=== PATIENT | male | born 1945 | race Caucasian/White ===

== ENCOUNTER 2021-09-18 12:20 | Inpatient (IN) | payer MEDICAID, SELFPAY ==
[~2021-09-18] VITALS: Ht 165.1 cm; Wt 72.1 kg
[2021-09-18 12:47] VITALS: BP 135/59
[2021-09-18 15:39] LABS: BASOPHILS % (AUTO) 0.1 % (0.0-2.0); HEMATOCRIT 22.6 % (36-52); LYMPHOCYTES # (AUTO) 0.3 K/uL (2.0-11.5); LYMPHOCYTES % (AUTO) 3.5 % (20.5-51.1); MEAN CORPUSCULAR HEMOGLOBIN 20 pg (27-31); MEAN CORPUSCULAR HGB CONC 30 g/dL (33-37); MEAN CORPUSCULAR VOLUME 67.2 fL (80-94); MONOCYTES # (AUTO) 0.4 K/uL (0.8-1.0); MONOCYTES % (AUTO) 5.1 % (1.7-9.3); NEUTROPHILS # (AUTO) 7.6 K/uL (1.8-7.7); NEUTROPHILS % (AUTO) 91.3 % (42.2-75.2); PLATELET COUNT (AUTO) 66 K/uL (140-450); RED BLOOD CELL COUNT(AUTO) 3.36 MIL/uL (4.20-6.10); RED CELL DISTRIBUTION WIDTH 20.5 % (11.6-13.7); WHITE BLOOD COUNT (AUTO) 8.4 K/uL (4.8-10.8)
[2021-09-18 15:49] LABS: HEMOGLOBIN 6.8 g/dL (12.0-18.0)
[2021-09-18 15:53] LABS: ANION GAP 7.2 (8-16); CARBON DIOXIDE 29.9 mmol/L (21-32); CHLORIDE 110 mmol/L (98-107); GLUCOSE 83 mg/dL (74-106); POTASSIUM 4.1 mmol/L (3.5-5.1); SODIUM SERUM 143 mmol/L (136-145); UREA NITROGEN, BLOOD 28 mg/dL (7-18)
--- NOTE | 2021-09-18 16:10 | NUR ---
PT TAKEN TO BED 03 VIA W/C.
[2021-09-18] MEDS ORDERED: ACETAMINOPHEN 325 MG TAB PO PRN (17:30)
[2021-09-18] MEDS ORDERED: ONDANSETRON 4 MG/2 ML VIAL IM/IVP PRN (17:30)
[2021-09-18] MEDS ORDERED: DOCUSATE SODIUM 100 MG GELCAP PO PRN (17:30)
[2021-09-18] MEDS ORDERED: ZOLPIDEM 5 MG TAB PO PRN (17:30)
[2021-09-18] MEDS ORDERED: HYDROcodone/APAP 7.5/325 MG 1 TAB PO PRN (17:30)
[2021-09-18] MEDS ORDERED: POTASSIUM CHLORIDE 10 MEQ TABER PO PRN (17:30)
[2021-09-18] MEDS ORDERED: guaiFENesin DM 200/20 MG-10 ML 10 ML UDC PO PRN (17:30)
--- NOTE | 2021-09-18 19:00 | NUR ---
unable to establish iv access at this time
--- NOTE | 2021-09-18 19:15 | NUR ---
75 y/o male biba for general weakness that started earlier this morning, pt states [facility], urgent care notified pt needed further care for generalized body pain and weakness. denies n/v/d. skin is pale/cool/dry; ambulates with walker, unable to ambulate at this time due to weakness; hr even and regular; patient states pain of 7/10 at this time; vss; patient positioned for comfort; hob elevated; bedrails x2; bed down. ermd made aware of pt status. pmh: chronic back pain med: methadone nka
--- NOTE | 2021-09-18 19:18 | NUR ---
pt swabbed for novel and philomena at this time
--- NOTE | 2021-09-18 19:20 | NUR ---
REPORT RECIEVED FROM MONO ANTOINE
[2021-09-18 20:35] LABS: CHOL/HDL RATIO 5.4 (1-4.5); FREE T4 (FREE THYROXINE) 0.95 ng/dL (0.76-1.46); MAGNESIUM 1.9 mg/dL (1.8-2.4); PHOSPHORUS 3.1 mg/dL (2.5-4.9); THYROID STIMULATING HORMONE 2.17 uIU/mL (0.34-3.74)
[2021-09-18] MEDS: NACL 0.9% 1,000 ML IV SCH (21:27)
--- NOTE | 2021-09-19 03:14 | NUR ---
PT SLEEPING IN BED COMFORTABLY WITH RAILS UP X2, HOB ELEVATED, AND BED IN LOWEST SETTING. PT PULSOX BETWEEN 88% AND 91%. PT GIVEN 2 L/MIN AND BROUGHT PULSOX TO 95%.
[2021-09-19] MEDS: NACL 0.9% 1,000 ML IV SCH ×2 (03:30→15:38)
[2021-09-19] MEDS ORDERED: METH-1625 PO (03:43)
[2021-09-19 03:56] LABS: APPEARANCE,URINE CLEAR (CLEAR); BILIRUBIN,URINE 1+ (NEGATIVE); BLOOD, URINE NEGATIVE (NEGATIVE); COLOR,URINE YELLOW (YELLOW); LEUKOCYTE ESTERASE ,URINE NEGATIVE (NEGATIVE); NITRITE, URINE NEGATIVE (NEGATIVE); UGLUCOSE NEGATIVE (NEGATIVE)
[2021-09-19 03:57] LABS: BARBITURATE, URINE NEGATIVE ng/ml (NEG <=200); BENZODIAZEPINE, URINE NEGATIVE ng/mL (NEG <=200); CANNABINOID, URINE NEGATIVE ng/mL (NEG <=50); COCAINE, URINE NEGATIVE ng/mL (NEG <=300); OPIATE, URINE NEGATIVE ng/mL (NEG <=2000); PHENCYCLIDINE SCREEN,URINE NEGATIVE ng/mL (NEG <=25)
--- NOTE | 2021-09-19 06:16 | NUR ---
PT'S CHUCKS AND DIAPER CHANGED AND GIVEN FRESH BLANKETS. SKIN INTACT. HOB ELEVATED, RAILS UP X2, AND BED IN LOWEST SETTING.
[2021-09-19 07:21] LABS: BASOPHILS % (AUTO) 0.1 % (0.0-2.0); LYMPHOCYTES # (AUTO) 0.4 K/uL (2.0-11.5); LYMPHOCYTES % (AUTO) 12.8 % (20.5-51.1); MEAN CORPUSCULAR HEMOGLOBIN 20 pg (27-31); MEAN CORPUSCULAR HGB CONC 30 g/dL (33-37); MEAN CORPUSCULAR VOLUME 67.8 fL (80-94); MONOCYTES # (AUTO) 0.2 K/uL (0.8-1.0); MONOCYTES % (AUTO) 6.9 % (1.7-9.3); NEUTROPHILS # (AUTO) 2.8 K/uL (1.8-7.7); NEUTROPHILS % (AUTO) 80.2 % (42.2-75.2); PLATELET COUNT (AUTO) 41 K/uL (140-450); RED BLOOD CELL COUNT(AUTO) 3.25 MIL/uL (4.20-6.10); WHITE BLOOD COUNT (AUTO) 3.4 K/uL (4.8-10.8)
--- NOTE | 2021-09-19 07:38 | NUR ---
Pt report given to chilo hernandez per romaine hernandez. Transfer of care at this time.
[2021-09-19 08:59] LABS: ANION GAP 8.6 (8-16); CARBON DIOXIDE 30.4 mmol/L (21-32); CHLORIDE 113 mmol/L (98-107); CREATININE 0.9 mg/dL (0.6-1.3); GLUCOSE 95 mg/dL (74-106); SODIUM SERUM 148 mmol/L (136-145); UREA NITROGEN, BLOOD 24 mg/dL (7-18)
[2021-09-19 09:08] LABS: HEMOGLOBIN 6.5 g/dL (12.0-18.0)
[2021-09-19] MEDS: PANTOPRAZOLE 40 MG TABEC PO SCH (09:47)
[2021-09-19] MEDS ORDERED: METHADONE 10 MG TAB PO SCH (13:14)
--- NOTE | 2021-09-19 19:00 | NUR ---
RECEIVED REPORT FROM ER NURSE FOR CONTINUITY OF CARE. WILL WAIT FOR PT TO ARRIVE TO UNIT.
--- NOTE | 2021-09-19 19:20 | NUR ---
ENDORSED PT REPORT TO TAPE TRANSFERRER NURSE FOR CONTINUITY OF CARE. PT STILL NOT ON UNIT.
--- NOTE | 2021-09-19 19:34 | NUR ---
Admited to [facility]. Will go to room 116. Belongings list completed. Report to emerald hernandez.
--- NOTE | 2021-09-19 20:40 | NUR ---
ADMITTED THIS 75 YEAR OLD MALE FROM ER PER RAHAT WITH CC OF GENERALIZED WEAKNESS AND BACK PAIN, AAOX4, VITAL SIGNS TAKEN, PUT ON O2 4L VIA NC, OCCASIONAL DRY COUGH NOTED, DENIES ANY BACK PAIN EXCEPT WHEN BEING MOVED, ORIENTED TO ROOM AND CALL LIGHT, PT IS R/O COVID, DROPLET PRECAUTION MAINTAINED, SAFETY MEASURES IN PLACE, CALL LIGHT WITHIN REACH.
[2021-09-19 21:00] VITALS: BP 121/45
--- NOTE | 2021-09-19 23:15 | NUR ---
CALLED BLOOD BANK AND FOLLOW UP ON AVAILABILITY OF PR[facility], SPOKE TO ARLENE, STATED [facility] DENIED THE REQUEST, TOLD HIM THAT PT'S HGB WENT DOWN FROM 6.8 TO 6.5 TODAY, STATED HE WELL RESUBMIT THE REQUEST TO [facility] FOR 1 UNIT PR[facility], WILL FOLLOW UP.
[2021-09-20] MEDS: NACL 0.9% 1,000 ML IV SCH ×3 (00:15→19:30)
[2021-09-20 04:00] VITALS: BP 126/44
--- NOTE | 2021-09-20 06:40 | NUR ---
CALLED BLOOD BANK AND TALK TO ARLENE, STATED HE MIGHT GIVE A UNIT OF PRBC INTENDED FOR ANOTHER PT TO THIS PT, WILL ENDORSE TO AM SHIFT TO FOLLOW UP.
--- NOTE | 2021-09-20 07:25 | NUR ---
RECEIVED REPORT FROM DATABASE DBA NURSE. PATIENT LYING DOWN IN BED WATCHING TV. NO DISTRESS NOTED. DENIES ANY PAIN. IV SITE INTACT, PATENT, AND INFUSING IVF PER MD ORDERS. REVIEWED PLAN OF CARE WITH PATIENT. VERBALIZED UNDERSTANDING. SAFETY MEASURES IN PLACE, CALL LIGHT WITHIN REACH. WILL CONTINUE TO MONITOR.
[2021-09-20 07:37] LABS: BASOPHILS % (AUTO) 0.2 % (0.0-2.0); EOSINOPHILS % (AUTO) 0.9 % (0.0-4.0); HEMATOCRIT 20.7 % (36-52); LYMPHOCYTES # (AUTO) 0.7 K/uL (2.0-11.5); LYMPHOCYTES % (AUTO) 22.4 % (20.5-51.1); MEAN CORPUSCULAR HEMOGLOBIN 20 pg (27-31); MEAN CORPUSCULAR HGB CONC 29 g/dL (33-37); MEAN CORPUSCULAR VOLUME 68.6 fL (80-94); MONOCYTES # (AUTO) 0.2 K/uL (0.8-1.0); MONOCYTES % (AUTO) 8.2 % (1.7-9.3); NEUTROPHILS % (AUTO) 68.3 % (42.2-75.2); PLATELET COUNT (AUTO) 49 K/uL (140-450); RED BLOOD CELL COUNT(AUTO) 3.02 MIL/uL (4.20-6.10); RED CELL DISTRIBUTION WIDTH 20.5 % (11.6-13.7); WHITE BLOOD COUNT (AUTO) 2.9 K/uL (4.8-10.8)
--- NOTE | 2021-09-20 07:47 | NUR ---
PT AWAKE, NO SIGNS OF DISTRESS, REPORT GIVEN TO ARASH WAHL FOR CONTINUITY OF CARE.
[2021-09-20 08:00] VITALS: BP 130/55
[2021-09-20 08:02] LABS: CARBON DIOXIDE 29.7 mmol/L (21-32); CHLORIDE 114 mmol/L (98-107); CREATININE 0.7 mg/dL (0.6-1.3); GLUCOSE 91 mg/dL (74-106); POTASSIUM 3.7 mmol/L (3.5-5.1); SODIUM SERUM 147 mmol/L (136-145); UREA NITROGEN, BLOOD 21 mg/dL (7-18)
--- NOTE | 2021-09-20 08:05 | NUR ---
PATIENT HAS BEEN SCREENED AND CATEGORIZED LOW NUTRITION RISK. PATIENT WILL BE SEEN WITHIN 7 DAYS OF ADMISSION. 09/25/[address]
[2021-09-20] MEDS: PANTOPRAZOLE 40 MG TABEC PO SCH (09:15)
[2021-09-20] MEDS: METHADONE 10 MG TAB PO SCH (09:15)
--- NOTE | 2021-09-20 09:17 | NUR ---
SCHEDULED MEDICATIONS DUE GIVEN. WILL CONTINUE TO MONITOR.
--- NOTE | 2021-09-20 10:00 | NUR ---
PATIENT SITTING DOWN IN BED. NO DISTRESS NOTED. WILL CONTINUE TO MONITOR.
[2021-09-20] MEDS ORDERED: ALBU-118 INH (11:19)
[2021-09-20] MEDS ORDERED: ALBUTEROL 0.083% 2.5 MG/3 ML NEBU INH PRN (11:25)
--- NOTE | 2021-09-20 13:00 | NUR ---
1 UNIT PR[facility] STARTED AT THIS TIME. WILL CONTINUE TO MONITOR.
[2021-09-20 16:00] VITALS: BP 112/42
--- NOTE | 2021-09-20 16:45 | NUR ---
1 UNIT PR[facility] COMPLETED. NO REACTIONS NOTED. WILL CONTINUE TO MONITOR.
--- NOTE | 2021-09-20 19:35 | NUR ---
GAVE REPORT TO ROUGE MIXER NURSE FOR CONTINUITY OF CARE. PATIENT IN STABLE CONDITION.
--- NOTE | 2021-09-20 19:45 | NUR ---
RECEIVED REPORT OF PT IN STABLE CONDITION.RESP.UNLABORED W/O2 AT 2L/NC.IVF INFUSING WELL.CALL LIGHT IN REACH.NO C/O PAIN NOW.WILL CONT.MONITORING.
[2021-09-21] VITALS: BP 141/56
--- NOTE | 2021-09-21 | NUR ---
SLEEPING.NO S/S OF ANY DISTRESS NOTED.
--- NOTE | 2021-09-21 04:00 | NUR ---
SLEEPING.VS STABLE.NO DISTRESS NOTED.
[2021-09-21] MEDS: NACL 0.9% 1,000 ML IV SCH (05:08)
--- NOTE | 2021-09-21 06:57 | NUR ---
SLEPT WELL.IVF IS IN PROGRESS. NO RESP DISTRESS NOTED.CALL LIGHT WITHIN REACH.
[2021-09-21 07:24] LABS: BASOPHILS % (AUTO) 0.2 % (0.0-2.0); EOSINOPHILS % (AUTO) 0.9 % (0.0-4.0); HEMOGLOBIN 8.2 g/dL (12.0-18.0); LYMPHOCYTES # (AUTO) 0.5 K/uL (2.0-11.5); LYMPHOCYTES % (AUTO) 9.1 % (20.5-51.1); MEAN CORPUSCULAR HEMOGLOBIN 21 pg (27-31); MEAN CORPUSCULAR HGB CONC 29 g/dL (33-37); MEAN CORPUSCULAR VOLUME 71.9 fL (80-94); MONOCYTES # (AUTO) 0.2 K/uL (0.8-1.0); MONOCYTES % (AUTO) 4.1 % (1.7-9.3); NEUTROPHILS # (AUTO) 4.6 K/uL (1.8-7.7); NEUTROPHILS % (AUTO) 85.7 % (42.2-75.2); PLATELET COUNT (AUTO) 62 K/uL (140-450); RED BLOOD CELL COUNT(AUTO) 3.89 MIL/uL (4.20-6.10); RED CELL DISTRIBUTION WIDTH 24.3 % (11.6-13.7); WHITE BLOOD COUNT (AUTO) 5.3 K/uL (4.8-10.8)
--- NOTE | 2021-09-21 07:26 | NUR ---
RECEIVED REPORT FROM CHILDREN'S ATTENDANT NURSE FOR CONTINUITY OF CARE. PT IS IN BED AT THIS TIME. RESPIRATIONS ARE EVEN AND UNLABORED. NO SIGNS OF DISTRESS NOTED. NO COMPLAINTS OF PAIN OR DISCOMFORT. CALL LIGHT WITHIN REACH. ALL SAFETY MEASURES IN PLACE. WILL CONTINUE TO MONITOR.
[2021-09-21 07:45] LABS: ANION GAP 8.1 (8-16); CARBON DIOXIDE 30.1 mmol/L (21-32); CHLORIDE 114 mmol/L (98-107); CREATININE 0.8 mg/dL (0.6-1.3); GLUCOSE 77 mg/dL (74-106); POTASSIUM 4.2 mmol/L (3.5-5.1); SODIUM SERUM 148 mmol/L (136-145); UREA NITROGEN, BLOOD 17 mg/dL (7-18)
[2021-09-21 08:00] VITALS: BP 126/51
[2021-09-21] MEDS ORDERED: FERR325E14 PO (08:31)
[2021-09-21] MEDS: METHADONE 10 MG TAB PO SCH (09:42)
--- NOTE | 2021-09-21 09:42 | NUR ---
ADMINISTERED ALL SCHEDULED MEDICATIONS. EDUCATED PT ON MEDS ADMINISTERED. PT VERBALIZED UNDERSTANDING. CALL LIGHT WITHIN REACH. ALL SAFETY MEASURES IN PLACE. WILL CONTINUE TO MONITOR.
[2021-09-21] MEDS: PANTOPRAZOLE 40 MG TABEC PO SCH (09:43)
[2021-09-21] MEDS ORDERED: SODIUM FERRIC GLUCONATE 125 MG in NACL 0.9% 100 ML IV SCH (10:00)
--- NOTE | 2021-09-21 10:17 | NUR ---
IV MEDICATION ADMINISTERED BY RN. WILL CONTINUE TO MONITOR.
--- NOTE | 2021-09-21 10:54 | NUR ---
DISCHARGE ORDER IN PLACE. WILL BEGIN DISCHARGE PAPERWORK AND GO OVER PAPERWORK WITH PT. WILL CONTINUE TO MONITOR.
[2021-09-21 11:11] VITALS: BP 126/51
[2021-09-21] MEDS ORDERED: LACTULOSE 20 GM/30 ML UDC PO SCH (13:00)
--- NOTE | 2021-09-21 13:05 | NUR ---
DC PLANNING PATIENT IS A 75-YEAR-OLD MALE ADMITTED IN THE [facility]/ED DUE TO DX. ANEMIA. SW MEET WITH PATIENT AT BEDSIDE TO DISCUSS AND GATHER COLLATERAL INFORMATION. SW MEET WITH PATIENT AND PROVIDED HIM WITH HOMELESS INFORMATION AND RESOURCES. PATIENT REPORTED NOT BEEN HOMELESS AND HAVING FAMILY SUPPORT FROM HIS YOUNGETS BROTHER (BETH) . REPORTED LIVIN ALONE IN HIS MOBILE HOME IN [facility] AT [phone] [place] [address]. PATIENT ALSO REPORTED NOT HAVING ADVANCE DIRECTIVES AND DECLINED INFORMATION PACKET PROVIDED BY SW. PATIENT REPORTED BEEN INDEPENDENT WITH ONLY HIS WALKER DME AND STATED NOT HAVING ANY ISSUES GETTING OR TAKING HIS MEDICATIONS PRESCRIBED BY MD. PER PATIENT HE HAS HIS PRIMARY MD IN [place] AND HAVING THE PHARMACY SEND HIS MEDICATIONS TO HIS HOME [place]. PATIENT REPORTED THAT HE WILL RETURN HOME WITH THE ASSISTANCE AND TRANSPORTATION FROM HIS BROTHER WHO WILL PICK HIM UP AFTER DC FROM [facility]. PATIENT WAS THANKFUL TO THESE DIGITAL MARKETING ANALYST FOR THE RESOURCES PROVIDED. SW ENDED THE VISIT WITH PATIENT AND WILL FOLLOW UP NEEDED.
--- NOTE | 2021-09-21 13:20 | NUR ---
WENT OVER DISCHARGE PAPERWORK WITH PT. ANSWERED ALL QUESTIONS. PT SIGNED ALL PAPERWORK. AWAITING A CALL FROM HIS BROTHER TO PICK HIM UP. ATTEMPTED TO CALL BROTHER SEVERAL TIMES, HOWEVER, UNABLE TO GET THROUGH. WILL CONTINUE TO TRY TO GET A HOLD OF PT BROTHER. WILL CONTINUE TO MONITOR.
--- NOTE | 2021-09-21 14:05 | NUR ---
PT BROTHER CALLED. STATED HE WAS GOING TO LICENSING SERVICES CLERK HIS BROTHER IN 1 HR. INFORMED PT.
[2021-09-21 15:28] LABS: ALBUMIN 1.7 g/dL (3.4-5.0); BILIRUBIN,DIRECT 1.9 mg/dL (0.0-0.3); TOTAL BILIRUBIN 3.3 mg/dL (0.0-1.0)
--- NOTE | 2021-09-21 15:55 | NUR ---
PT DISCHARGED HOME. BROTHER CAME TO PICK HIM UP. WRIST BAND REMOVED. IV REMOVED. IV CATHETER IN TACT. ALL BELONGINGS TAKEN UPON DISCHARGE.
[2021-09-21] MEDS ORDERED: SENNA 8.6 MG TAB PO SCH (21:00)
[2021-09-22 08:07] LABS: HEPATITIS A ANTIBODY IGM Negative (Negative); HEPATITIS B CORE AB TOTAL Positive (Negative); HEPATITIS B SURFACE ANTIBODY Reactive (.); HEPATITIS B SURFACE ANTIGEN Negative (Negative)
== END 2021-09-21 16:00 | disposition home or self-care (01) | DRG 253 ==
LOC: MED 12:20 → MTU 17:30
PROVIDERS: ADMIT Family Medicine; ATTEND Family Medicine
PROC: 30233N1 Transfusion of Nonautologous Red Blood Cells into Peripheral Vein, Percutaneous Approach (ICD-10-PCS; principal; 2021-09-20)
DX: K92.2 Gastrointestinal hemorrhage, unspecified (principal); G93.41 Metabolic encephalopathy; E43 Unspecified severe protein-calorie malnutrition; E87.0 Hyperosmolality and hypernatremia; D69.6 Thrombocytopenia, unspecified; D50.9 Iron deficiency anemia, unspecified; F17.210 Nicotine dependence, cigarettes, uncomplicated; E46 Unspecified protein-calorie malnutrition; Z20.822 Contact with and (suspected) exposure to COVID-19; E78.5 Hyperlipidemia, unspecified; G89.29 Other chronic pain; E03.9 Hypothyroidism, unspecified; M47.817 Spondylosis without myelopathy or radiculopathy, lumbosacral region; Z59.00 Homelessness unspecified; Z79.891 Long term (current) use of opiate analgesic
CPT/HCPCS: 36415; 71045; 72131; 80048; 80076; 80305; 81003; 82150; 82607; 82728; 82746; 83036; 83540; 83690; 83735; 83880; 84100; 84436; 84439; 84443; 84479; 84484; 85025; 85045; 85610; 85730; 86704; 86706; 86708; 86709; 86803; 86886; 86900; 86901; 86920; 87081; 87340; 93005; 93925; 93970; 99285; J2916; P9016; Q0092; U0003